=== PATIENT | female | born 1990 | race African-American/Black ===

== ENCOUNTER 2018-04-07 16:05 | Outpatient (CLI) | payer BC ==
[2018-04-07 17:03] LABS: Glucose,Whole Blood 77 mg/dL (75-99)
[2018-04-07 17:49] VITALS: BP 113/72; PULSE 89; RESP 16; TEMP 97.9
--- NOTE | 2018-05-02 10:53 | P.MSEPDOC ---
Presenting Problems - Arrival Data Date of Arrival on Unit: 04/07/18 Time of Arrival on Unit: 16:05 Mode of Transport: Ambulatory - Complaint OB-Reason for Admission/Chief Complaint: Dizziness Comment: pt reports completing glucola test on tuesday and has felt dizzy since, no fainting spells Medical History - Information : 3 Para: 0 Term: 0 : 0 Abortions: Spontaneous or Elective: 2 Number of Living Children: 0 - Gestational Age Gestational Age by SHEMAR (wks/days): 26 Weeks and 3 Days Review of Systems - Review of Systems Constitutional: No problems Breast: No problems ENT: No problems Cardiovascular: No problems Respiratory: No problems Genitourinary: No problems Musculoskeletal: No problems Neurological: Dizziness Skin: No problems Vital Signs - Temperature Temperature: 97.9 F Temperature Source: Temporal Artery Scan - Pulse Right Brachial Pulse Rate: 89 Pulse Assessment Method: Automatic Cuff - Respirations Respiratory Rate: 16 Oxygen Delivery Method: Room Air O2 Sat by Pulse Oximetry: 100 - Blood Pressure Right Arm Blood Pressure: 113/72 Blood Pressure Mean: 85 Blood Pressure Source: Automatic Cuff Medical Screen Scoring (Pre) - Cervical Exam Dilation: Exam Deferred Effacement: Exam Deferred Membranes: Intact - Uterine Contractions Frequency: N/A Duration: N/A Intensity: N/A - Maternal Vital Signs Maternal Temperature: N/A Maternal Blood Pressure: N/A Signs of Preeclampsia: N/A Maternal Respirations: N/A - Pain Assessment Pain Location and Character: Lower, Abdomen Pain Scale Used: Numeric (1 - 10) Pain Intensity: 2 Pain Management Goal: 3 Pain Description: *Acute, Aching Pain Radiation Location: none Pain Frequency: Frequent Pain Duration: 3 Pain Duration Units: Days Pain Behavior: None Exhibited - Maternal Trauma Maternal Trauma: N/A - Assessment Baseline FHR: 135 Position: N/A Station: N/A - Total Score Total Score (Pre): 0 - Level of Risk Level of Risk: Low (0-5) Physician Notification (Pre) - Physician Notified Physician Notified Date: 04/07/18 Physician Notified Time: 16:52 Physician/Practitioner Notifed:: Dr Luque Spoke With: Dr Luque New Order Received: Yes (ak home) - Notification Comment Comment: checked random cap glucose for a result of 77, educated pt to increase fluid intake and instructed pt to be on pelvic rest until next appt on 04/19 Disposition - Disposition OB Disposition: Discharge to home, Written follow up instructions reviewed Discharge Date: 04/07/18 Discharge Time: 17:07 I agree with the RN Medical Screening Exam: Yes Risk & Benefit of care provided described in d/c instruction: Yes Diagnosis: RELATED CONDITIONS, UNSPECIFIED, SECOND TRIMESTER
== END 2018-04-07 17:07 | disposition home or self-care (01) ==
LOC: FBPOP 16:05
PROVIDERS: ATTEND Obstetrics & Gynecology
DX: O26.92 Pregnancy related conditions, unspecified, second trimester (principal); Z3A.26 26 weeks gestation of pregnancy
CPT/HCPCS: 99213